=== PATIENT | male | born 1960 ===

== ENCOUNTER → 2018-08-08 | Outpatient (CLI) | payer BC ==
[2018-08-08 08:18] LABS: Basophils # (auto) 0 uL; Basophils % (auto) 0.2 % (0.0-2.0); Eosinophils # (auto) 0.2 uL; Hematocrit 47.2 % (41.0-53.0); Lymphocytes % (auto) 23.8 % (10.0-50.0); Mean Corpuscular Hemoglobin 30.3 pg (28.0-32.0); Mean Corpuscular Volume 89.2 fL (80.0-100.0); Monocytes # (auto) 0.7 uL; Monocytes % (auto) 8.4 % (0.0-12.0); Neutrophils # (auto) 5.5 uL; Neutrophils % (auto) 65.6 % (37.0-80.0); Platelet Count (auto) 270 10^3/uL (140-450); Red Blood Cells 5.29 10^6/uL (4.5-5.90); Red Cell Distribution Width 13.3 % (11.8-14.3); White Blood Cell 8.3 10^3/uL (4.4-10.8)
[2018-08-08 09:20] LABS: Albumin 3.7 g/dL (3.4-5.0); Potassium 4.4 mmol/L (3.5-5.1)
[2018-08-08 09:36] LABS: BUN/Creatinine Ratio 15.6; Bilirubin, Total 0.4 mg/dL (0.2-1.0); Calcium 8.8 mg/dL (8.5-10.1); Total Protein 7.4 g/dL (6.4-8.2)
== END | disposition home or self-care (01) ==
LOC: LAB 08:00
PROVIDERS: ATTEND Internal Medicine
DX: Z12.11 Encounter for screening for malignant neoplasm of colon (principal); R63.4 Abnormal weight loss; Z86.010 Personal history of colon polyps
CPT/HCPCS: 36415; 80053; 80061; 82306; 84443; 85025; 85652

== ENCOUNTER → 2018-08-12 | Outpatient (CLI) | payer BC | END | disposition still patient (30) | LOC: LAB 07:59 | PROVIDERS: ATTEND Internal Medicine | DX: Z12.11 Encounter for screening for malignant neoplasm of colon (principal); R63.4 Abnormal weight loss; Z86.010 Personal history of colon polyps | CPT/HCPCS: 82274 ==